=== PATIENT | male | born 1975 | race Caucasian/White ===

== ENCOUNTER 2017-03-08 05:35 | Day surgery (SDC) | payer OTHER ==
[2017-03-05 08:56] VITALS: BMI 28.5
[2017-03-08] MEDS ORDERED: CEFAZOLIN/Water 2 GM/20 ML SYRINGE ONE (06:11)
[2017-03-08 06:25] LABS: #Basophils 0.1 thou/uL (0.0-0.2); #Eosinphils 0.2 thou/uL (0.0-0.7); #Lymphocytes 2.5 thou/uL (1.20-3.40); #Neutrophils 4.9 thou/uL (1.40-6.50); %Basophils 1.5 % (0.0-1.0); %Eosinophils 1.8 % (0.0-10.0); %Monocytes 11.4 % (0.0-10.0); Hematocrit 48.5 % (42.0-52.0); Mean Platelet Volume 6.9 fL (7.4-10.4); Red Blood Cell (RBC) Count 5.29 mill/uL (4.70-6.10); White Blood Cell (WBC) Count 8.7 thou/uL (4.8-10.8)
[2017-03-08] MEDS ORDERED: Lidocaine 2% w/Epinephrine 1:200K 20 ML VIAL ONE (06:38)
[2017-03-08] MEDS ORDERED: Bupivacaine 0.25% HCL 30 ML VIAL ONE (06:39)
[2017-03-08 06:49] LABS: ALT (SGPT) 32 U/L (8-55); AST (SGOT) 19 U/L (5-34); Alkaline Phosphatase 63 U/L (40-150); Anion Gap 15 mmol/L (10-20); BUN (Urea Nitrogen) 15 mg/dL (8.9-20.6); Bilirubin, Total 2.3 mg/dL (0.2-1.2); Calc. Creatinine Clearance 110 mL/min (70-130); Calcium 9.7 mg/dL (7.8-10.44); Carbon Dioxide 26 mmol/L (22-29); Chloride 101 mmol/L (98-107); Estimated GFR-MDRD 67; Globulin 3.1 g/dL (2.4-3.5); Protein, Total 7.6 g/dL (6.0-8.3)
[2017-03-08] MEDS ORDERED: Fentanyl 100 MCG/2 ML VIAL ONE (06:53)
[2017-03-08] MEDS ORDERED: Midazolam HCl 2 mg/2 ml Vial ONE (07:24)
[2017-03-08] MEDS ORDERED: Ondansetron HCl/PF 4 MG/2 ML Vial ONE ×3 (07:26→07:33)
[2017-03-08] MEDS ORDERED: Metoclopramide HCl 10 MG/2 ML VIAL ONE (07:33)
[2017-03-08] MEDS ORDERED: Lidocaine 2% MPF 10 ML AMP (For Epidural Use) ONE (07:33)
[2017-03-08] MEDS ORDERED: Dexamethasone 20 MG/5 ML VIAL ONE (07:33)
[2017-03-08] MEDS ORDERED: Propofol 200 MG/20 ML VIAL ONE (07:33)
[2017-03-08] MEDS ORDERED: Acetaminophen/Codeine 30-300mg Tablet ONE (09:47)
--- NOTE | 2017-03-08 10:01 | OP ---
DATE OF PROCEDURE: 03/08/2017 PREOPERATIVE DIAGNOSIS: Recurrent right inguinal hernia. SURGEON: Oneal Myles M.D. PROCEDURE PERFORMED: Recurrent right inguinal hernia repair with mesh. INDICATIONS: This 41-year-old male who had had previous bilateral inguinal hernia repair as an infa nt who developed a painful bulge in the right groin. FINDINGS: A direct right inguinal hernia. PROCEDURE: After informed consent was obtained, the patient was taken to the operating room and giv en general mask anesthesia, placed in the supine position. Groin was prepped and draped in the usua l fashion. Local anesthesia infiltrated subcutaneously and deep. A transverse right inguinal incis ion was performed. The subcu divided sharply. Adhesions were lysed sharply. The external oblique fascia was incised in the direction of its fibers through the external ring, again adhesions lysed. Spermatic cord isolated with a [place] drain. There was no indirect component. There was a direct inguinal hernia. This was circumscribed and reduced. Reduction was maintained with a PHS hernia s ystem. Posterior layer was placed in the preperitoneal space. Anterior, it was laid out. It was s utured to the pubic tubercle medially, tucked under the external oblique fascia laterally. A notch was cut out for the spermatic cord. Hemostasis assured. External oblique fascia was closed over th e cord with a running 3-0 Vicryl. Gregory's closed with interrupted 3-0 Vicryl and the skin closed w ith a running subcuticular 4-0 Rapide. Steri-Strips applied. Sterile bandage applied. The patient tolerated the procedure well and transferred to recovery in good condition. Sponge and needle coun t verified correct x2.
== END 2017-03-08 10:15 | disposition home or self-care (01) ==
LOC: EEVIPCON 05:35 → SDC 05:35
PROVIDERS: ATTEND Surgery
PROC: 0YU50JZ Supplement Right Inguinal Region with Synthetic Substitute, Open Approach (ICD-10-PCS; principal; 2017-03-08)
DX: K40.91 Unilateral inguinal hernia, without obstruction or gangrene, recurrent (principal); I10 Essential (primary) hypertension; F90.9 Attention-deficit hyperactivity disorder, unspecified type; Z79.899 Other long term (current) drug therapy; Z90.89 Acquired absence of other organs; Z98.890 Other specified postprocedural states
CPT/HCPCS: 36415; 80053; 85025; C1781; J1100; J2001; J2250; J2405; J2704; J2765; J3010; S0020